=== PATIENT | female | born 1990 | race Caucasian/White ===

== ENCOUNTER 2018-10-19 14:55 | Outpatient (CLI) | payer MEDICAID ==
[2018-10-19 18:12] LABS: ADD UMIC NO; UR ASCORBIC ACID 20 mg/dL (NEGATIVE); UR BILIRUBIN (Dip) NEGATIVE (NEGATIVE); UR BLOOD (Dip) NEGATIVE (NEGATIVE); UR CLARITY CLEAR (CLEAR); UR COLOR YELLOW (YELLOW); UR GLUCOSE (Dip) NEGATIVE (NEGATIVE); UR KETONES (Dip) NEGATIVE (NEGATIVE); UR LEUKOCYTE ESTERASE (Dip) NEGATIVE Leu/ul (NEGATIVE); UR NITRITE (Dip) NEGATIVE (NEGATIVE); UR SPECIFIC GRAVITY (Dip) 1.018 (1.003-1.030); UR TOTAL PROTEIN (Dip) NEGATIVE (NEGATIVE); UR UROBILINOGEN (Dip) NEGATIVE (NEGATIVE)
[2018-10-19] MEDS: TERBUTALINE 1 MG/ML INJ SC (20:55)
[2018-10-19] MEDS: BETAMET NA PHOS/AC(6 MG/ML) 2 ML INJ SYG IM (21:02)
== END 2018-10-19 21:15 | disposition home or self-care (01) ==
LOC: OBT 14:55 → L-D 14:56 → OBT 21:15
DX: O62.9 Abnormality of forces of labor, unspecified (principal); Z3A.35 35 weeks gestation of pregnancy
CPT/HCPCS: 76818; 81003; 87086

== ENCOUNTER 2018-10-20 19:08 | Outpatient (CLI) | payer MEDICAID ==
[2018-10-20] MEDS: BETAMET NA PHOS/AC(6 MG/ML) 2 ML INJ SYG IM (20:38)
== END 2018-10-20 21:03 | disposition home or self-care (01) ==
LOC: OBT 19:08 → L-D 19:08 → OBT 21:03
DX: O62.9 Abnormality of forces of labor, unspecified (principal); Z3A.35 35 weeks gestation of pregnancy
CPT/HCPCS: J0702

== ENCOUNTER 2018-11-11 15:09 | Inpatient (IN) | payer MEDICAID ==
[2018-11-11] MEDS ORDERED: CARBOPROST 250 MCG INJ IM (15:30)
[2018-11-11] MEDS ORDERED: OXYTOCIN 30 UNITS/LR 500 ML IV (15:30)
[2018-11-11] MEDS ORDERED: IBUPROFEN 600 MG TAB PO (15:30)
[2018-11-11] MEDS ORDERED: MISOPROSTOL 200 MCG TAB PR (15:30)
[2018-11-11] MEDS ORDERED: METHYLERGONOVINE 0.2 MG INJ IM (15:30)
[2018-11-11] MEDS: LACTATED RINGER'S 1,000 ML IV ×2 (15:58→22:47)
[2018-11-11 16:12] LABS: ADD MAN DIFF? NO
[2018-11-11 16:14] LABS: BASOPHILS % 0.3 % (0.0-2.0); EOSINOPHILS % 0.3 % (0.0-7.0); HEMATOCRIT 39.4 % (37.0-47.0); HEMOGLOBIN 13.4 g/dl (12.0-16.0); LYMPHOCYTES # 1.3 10^3/ul (0.8-2.9); LYMPHOCYTES % 18.6 % (15.0-51.0); MEAN CORPUSCULAR HEMOGLOBIN 31.9 pg (29.0-33.0); MEAN CORPUSCULAR VOLUME 93.8 fl (82.0-101.0); MEAN PLATELET VOLUME 9.8 fl (7.4-10.4); MONOCYTE # 0.5 10^3/ul (0.3-0.9); MONOCYTES % 7.6 % (0.0-11.0); NEUTROPHIL # 4.9 10^3/ul (1.6-7.5); NEUTROPHILS % 72.3 % (39.0-77.0); PLATELET COUNT 226 10^3/UL (140-415); RED CELL DISTRIBUTION WIDTH 13.2 % (11.5-14.5)
[2018-11-11 16:14] LABS: WHITE BLOOD COUNT 6.7 10^3/ul (4.8-10.8)
[2018-11-11 16:39] LABS: INR 0.86; PROTIME 11.8 Sec (11.9-14.9); PT RATIO 0.9
[2018-11-11] MEDS: AMPICILLIN 2 GM/NS (PMX) 100 ML IV (16:39)
[2018-11-11 16:40] LABS: PARTIAL THROMBOPLASTIN TIME 25.3 Sec (23.0-35.0)
[2018-11-11 17:12] LABS: HEPATITIS B SURFACE ANTIGEN NEGATIVE (NEGATIVE)
[2018-11-11 17:21] LABS: HIV 1&2 ANTIBODY NEGATIVE (NEGATIVE)
[2018-11-11] MEDS: AMPICILLIN 1 GM/NS (PMX) 50 ML IV (20:37)
[2018-11-11] MEDS ORDERED: MINERAL OIL LIGHT 10 ML VIAL TOP (21:00)
[2018-11-11] MEDS: BUTORPHANOL 2 MG INJ IV (22:31)
[2018-11-11] MEDS: OXYTOCIN 30 UNITS/LR 500 ML IV ×2 (23:16→23:41)
[2018-11-12] MEDS: LIDOCAINE 1% (MPF) 30 ML INJ INJ (00:55)
[2018-11-12] MEDS ORDERED: MISOPROSTOL 200 MCG TAB PR (01:30)
[2018-11-12] MEDS ORDERED: METHYLERGONOVINE 0.2 MG INJ IM (01:30)
[2018-11-12] MEDS ORDERED: OXYTOCIN 30 UNITS/LR 500 ML IV (01:30)
[2018-11-12] MEDS ORDERED: OXYCODONE/ASPIRIN (4.88/325) TAB PO ×2 (01:30)
[2018-11-12] MEDS ORDERED: ZOLPIDEM 5 MG TAB PO (01:30)
[2018-11-12] MEDS ORDERED: CARBOPROST 250 MCG INJ IM (01:30)
[2018-11-12] MEDS: IBUPROFEN 600 MG TAB PO ×4 (02:15→17:47)
[2018-11-12] MEDS: WITCH HAZEL/GLYCERIN PAD PR (02:15)
[2018-11-12] MEDS: LANOLIN HPA 1 PKT TOP (02:15)
[2018-11-12] MEDS: BENZOCAINE 20% 56 ML SPRAY TOP (02:15)
[2018-11-12] MEDS: OXYTOCIN 30 UNITS/LR 500 ML IV (04:41)
[2018-11-12] MEDS: LACTATED RINGER'S 1,000 ML IV* ×3 (05:17→17:05)
[2018-11-12] MEDS: SENNA/DOCUSATE NA (8.6MG/50MG) TAB PO ×2 (09:16→20:47)
[2018-11-12 09:22] LABS: ADD MAN DIFF? NO
[2018-11-12 09:46] LABS: WHITE BLOOD COUNT 11.7 10^3/ul (4.8-10.8)
[2018-11-12 09:46] LABS: BASOPHILS % 0.2 % (0.0-2.0); EOSINOPHILS % 0.1 % (0.0-7.0); HEMATOCRIT 35.1 % (37.0-47.0); LYMPHOCYTES # 1.4 10^3/ul (0.8-2.9); LYMPHOCYTES % 11.8 % (15.0-51.0); MEAN CORPUSCULAR HEMOGLOBIN 32.2 pg (29.0-33.0); MEAN CORPUSCULAR HGB CONC 34.2 g/dl (32.0-37.0); MEAN CORPUSCULAR VOLUME 94.1 fl (82.0-101.0); MEAN PLATELET VOLUME 10.2 fl (7.4-10.4); MONOCYTES % 8.5 % (0.0-11.0); NEUTROPHIL # 9.2 10^3/ul (1.6-7.5); NEUTROPHILS % 78.6 % (39.0-77.0); PLATELET COUNT 217 10^3/UL (140-415); RED BLOOD COUNT 3.73 10^6/ul (4.20-5.40); RED CELL DISTRIBUTION WIDTH 13.3 % (11.5-14.5)
[2018-11-12 14:49] LABS: RHOGAM PROFILE 1 1
[2018-11-12 20:20] LABS: RAPID PLASMA REAGIN NONREACTIVE (NR)
[2018-11-13] MEDS: IBUPROFEN 600 MG TAB PO ×4 (00:03→17:50)
[2018-11-13] MEDS: LACTATED RINGER'S 1,000 ML IV* ×3 (01:05→17:05)
[2018-11-13] MEDS: SENNA/DOCUSATE NA (8.6MG/50MG) TAB PO (09:00)
[2018-11-14] MEDS ORDERED: DIPHTH/TET/ACEL PERTUSS (ADULT) 0.5 ML VIAL IM* (09:00)
== END 2018-11-13 18:40 | disposition home or self-care (01) | DRG 807 ==
LOC: OBT 15:09 → PP1 11-12 00:47 → L-D 15:10 → OBT 15:25 → L-D 15:25
PROVIDERS: Obstetrics & Gynecology
PROC: 10E0XZZ Delivery of Products of Conception, External Approach (ICD-10-PCS; principal; 2018-11-11)
PROC: 0HQ9XZZ Repair Perineum Skin, External Approach (ICD-10-PCS; 2018-11-11)
PROC: 4A1HXCZ Monitoring of Products of Conception, Cardiac Rate, External Approach (ICD-10-PCS; 2018-11-11)
PROC: 3E0334Z Introduction of Serum, Toxoid and Vaccine into Peripheral Vein, Percutaneous Approach (ICD-10-PCS; 2018-11-12)
DX: O99.824 Streptococcus B carrier state complicating childbirth (principal); Z37.0 Single live birth; O70.0 First degree perineal laceration during delivery; Z3A.38 38 weeks gestation of pregnancy; Z29.13 Encounter for prophylactic Rho(D) immune globulin
CPT/HCPCS: 76815; 85025; 85610; 85730; 86592; 86703; 86850; 86885; 86900; 86901; 87340; 99464